=== PATIENT | female | born 1955 | race Caucasian/White ===

== ENCOUNTER 2018-02-11 19:07 | Emergency (ER) | payer MEDICAID ==
[~2018-02-11] VITALS: Ht 152.4 cm; Wt 53.0 kg
[~2018-02-11 19:07] MED LIST: ALPR-624 PO; BACL10TA PO; CETI5TAB8 PO; DOCU-28 PO; DOCU100C40 PO; ESTR0.3T3 PO; HYDR-565 PO; HYDR-569 PO; OXYC5CAP19 PO; RANI150C4 PO; RISP2TAB3 PO; SERT25TA PO; SULI200T97 PO; TOPI50TA24 PO
[2018-02-11 19:26] VITALS: BP 115/53
== END 2018-02-11 22:55 | disposition left against medical advice (07) ==
LOC: ER 19:07
DX: K08.89 Other specified disorders of teeth and supporting structures (principal); Z53.21 Procedure and treatment not carried out due to patient leaving prior to being seen by health care provider

== ENCOUNTER 2023-02-06 15:56 | Emergency (ER) | payer OTHER, MEDICARE, MEDICAID ==
[~2023-02-06] VITALS: Ht 160 cm; Wt 52.8 kg
[~2023-02-06 15:56] MED LIST changes: +CETI5TAB27 PO; -CETI5TAB8 PO; +HYDR-4353 PO; +HYDR-4383 PO; -HYDR-565 PO; -HYDR-569 PO; +PROP10TA10 PO; -RISP2TAB3 PO; +RISP2TAB85 PO; +TOPI-253 PO; -TOPI50TA24 PO
[2023-02-06 16:27] VITALS: TEMP 99.2
--- NOTE | 2023-02-06 17:01 | NUR ---
MEDICAL RECORDS REC'D VIA [facility] SHARE FROM [facility]
[2023-02-06 17:41] VITALS: BP 163/87; PULSE 82; RESP 16; O2SAT 100
== END 2023-02-06 18:15 | disposition home or self-care (01) ==
LOC: ER 15:57
DX: S06.0XAA Concussion with loss of consciousness status unknown, initial encounter (principal); G43.909 Migraine, unspecified, not intractable, without status migrainosus; M19.90 Unspecified osteoarthritis, unspecified site; Z88.8 Allergy status to other drugs, medicaments and biological substances; Z79.899 Other long term (current) drug therapy; Y08.89XA Assault by other specified means, initial encounter; Y93.89 Activity, other specified; Y92.89 Other specified places as the place of occurrence of the external cause; Y99.8 Other external cause status
CPT/HCPCS: 99282

== ENCOUNTER 2023-02-09 02:18 | Emergency (ER) | payer OTHER, MEDICARE, MEDICAID ==
[~2023-02-09] VITALS: Ht 160 cm; Wt 53.6 kg
[2023-02-09 02:34] VITALS: TEMP 97.7
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
[2023-02-09] MEDS ORDERED: ketorolac trometh. 30mg/ml inj. IM ONE (03:50)
[2023-02-09 05:13] VITALS: BP 138/79; PULSE 75; RESP 16; O2SAT 97
== END 2023-02-09 05:31 | disposition home or self-care (01) ==
LOC: ER 02:19
DX: R07.81 Pleurodynia (principal); G43.909 Migraine, unspecified, not intractable, without status migrainosus; M19.90 Unspecified osteoarthritis, unspecified site; F17.200 Nicotine dependence, unspecified, uncomplicated; Z88.8 Allergy status to other drugs, medicaments and biological substances; Z79.899 Other long term (current) drug therapy; Y08.89XA Assault by other specified means, initial encounter; Y93.89 Activity, other specified; Y92.89 Other specified places as the place of occurrence of the external cause; Y99.8 Other external cause status
CPT/HCPCS: 71045; 96372; 99283; J1885

== ENCOUNTER 2023-02-12 10:12 | Emergency (ER) | payer OTHER, MEDICARE, MEDICAID ==
[~2023-02-12] VITALS: Ht 160 cm; Wt 51.4 kg
[2023-02-12 10:21] VITALS: TEMP 97.4
[2023-02-12 10:51] VITALS: BP 146/80; PULSE 64; RESP 15; O2SAT 100
--- NOTE | 2023-02-12 10:55 | NUR ---
Patient ambulated to the bathroom without difficulty.
[2023-02-12] MEDS ORDERED: TRAM50TA2 PO (11:54)
== END 2023-02-12 12:16 | disposition home or self-care (01) ==
LOC: ER 10:12
DX: R07.81 Pleurodynia (principal); G43.909 Migraine, unspecified, not intractable, without status migrainosus; F41.9 Anxiety disorder, unspecified; M19.90 Unspecified osteoarthritis, unspecified site; Z72.89 Other problems related to lifestyle; Z88.8 Allergy status to other drugs, medicaments and biological substances; Z79.899 Other long term (current) drug therapy
CPT/HCPCS: 99284

== ENCOUNTER 2023-02-20 02:01 | Emergency (ER) | payer OTHER, MEDICARE, MEDICAID ==
[~2023-02-20] VITALS: Ht 160 cm; Wt 51.4 kg
[~2023-02-20 02:01] MED LIST changes: +TRAM50TA2 PO
[2023-02-20 02:17] VITALS: BP 118/63; PULSE 64; TEMP 97.8; O2SAT 99
[2023-02-20] MEDS ORDERED: traMADol 50MG tablet PO ONE (08:15)
[2023-02-20] MEDS ORDERED: TRAM50TA2 PO (08:16)
[2023-02-20 08:21] VITALS: RESP 16
== END 2023-02-20 09:03 | disposition home or self-care (01) ==
LOC: ER 02:01
DX: S20.211A Contusion of right front wall of thorax, initial encounter (principal); R51.9 Headache, unspecified; Z88.8 Allergy status to other drugs, medicaments and biological substances; Z79.899 Other long term (current) drug therapy; Y08.89XA Assault by other specified means, initial encounter; Y93.89 Activity, other specified; Y92.89 Other specified places as the place of occurrence of the external cause; Y99.8 Other external cause status
CPT/HCPCS: 99283